=== PATIENT | female | born 1990 | race Two or more races ===

== ENCOUNTER 2023-12-12 15:53 | Inpatient (IN) | payer OTHER ==
[2023-12-12] MEDS ORDERED: CEFTRIAXONE 2 GM/100 ML BAG IVPB ONE (17:59)
[2023-12-12] MEDS: cefTRIAXone 2 GM/100 ML BAG (PRE-DOCKED) IVPB ONE (18:00)
[2023-12-12 18:01] LABS: BASO % 0.1 % (0-2.0); HEMATOCRIT 36.7 % (32.4-45.2); HEMOGLOBIN 12.2 GM/dL (10.7-15.3); LYMPH % 9.2 % (8-40); MCH 29.3 pg (25.7-33.7); MCHC 33.3 g/dl (32.0-36.0); MEAN CELL VOLUME 87.9 fl (80-96); MEAN PLT VOLUME 7.3 fl (7.5-11.1); MONO % 3.3 % (3.8-10.2); NEUT % 87.4 % (42.8-82.8); PLATELET COUNT 370 10^3/uL (134-434); RBC 4.18 M/mm3 (3.60-5.2); RDW 14.5 % (11.6-15.6); WHITE BLOOD COUNT 18.1 K/mm3 (4.0-10.0)
[2023-12-12 18:20] LABS: POTASSIUM 3.8 mmol/L (3.5-5.1)
[2023-12-12 18:22] LABS: ALBUMIN 4.1 g/dl (3.4-5.0); BLOOD UREA NITROGEN 10.8 mg/dL (7-18); CALCIUM 9.2 mg/dL (8.5-10.1)
[2023-12-12 18:26] LABS: CREATININE 0.7 mg/dL (0.55-1.3)
[2023-12-12 18:27] LABS: BILIRUBIN,TOTAL 0.4 mg/dL (0.2-1)
[2023-12-12 18:28] LABS: TOT PROT 8.1 g/dl (6.4-8.2)
[2023-12-12 18:52] LABS: ACTIVATED PTT 29.6 SECONDS (25.2-36.5)
[2023-12-12 18:54] LABS: INR 1.01 (0.83-1.09); PROTHROMBIN TIME (PATIENT) 11.4 SEC (9.7-13.0)
[2023-12-12] MEDS: DAPTOMYCIN 800 MG in SODIUM CHLORIDE 50 ML IVPB ONE (20:55)
[2023-12-12] MEDS ORDERED: ACETAMINOPHEN 325 MG TABLET (FP) ONE (23:27)
[2023-12-12] MEDS: ACETAMINOPHEN 325 MG TABLET (FP) PO PRN (23:30)
[2023-12-13] MEDS ORDERED: MORPHINE SULFATE 2 MG/ML SYRINGE ONE ×2 (01:48→04:26)
[2023-12-13] MEDS: morphine CARPU-JECT 2 MG/1 ML DISP.SYRIN IVPUSH ONE (01:58)
[2023-12-13] MEDS: IBUPROFEN 400 MG TABLET (FP) PO ONE (03:40)
[2023-12-13] MEDS: morphine CARPU-JECT 4 MG/1 ML DISP.SYRIN IVPUSH ONE (04:33)
[2023-12-13 06:26] LABS: BASO % 0.3 % (0-2.0); EOS % 0.5 % (0-4.5); HEMATOCRIT 37.2 % (32.4-45.2); HEMOGLOBIN 12.5 GM/dL (10.7-15.3); LYMPH % 25.3 % (8-40); MCH 29.5 pg (25.7-33.7); MCHC 33.7 g/dl (32.0-36.0); MEAN CELL VOLUME 87.6 fl (80-96); MEAN PLT VOLUME 7.5 fl (7.5-11.1); MONO % 7.2 % (3.8-10.2); NEUT % 66.7 % (42.8-82.8); PLATELET COUNT 366 10^3/uL (134-434); RBC 4.24 M/mm3 (3.60-5.2); RDW 14.1 % (11.6-15.6); WHITE BLOOD COUNT 15.7 K/mm3 (4.0-10.0)
[2023-12-13 06:44] LABS: POTASSIUM 4.1 mmol/L (3.5-5.1)
[2023-12-13 06:48] LABS: ALBUMIN 3.8 g/dl (3.4-5.0); BLOOD UREA NITROGEN 11.3 mg/dL (7-18); MAGNESIUM 2.2 mg/dL (1.8-2.4)
[2023-12-13 06:51] LABS: CREATININE 0.6 mg/dL (0.55-1.3); PHOSPHOROUS 3.2 mg/dL (2.5-4.9)
[2023-12-13 06:53] LABS: BILIRUBIN,TOTAL 0.4 mg/dL (0.2-1); TOT PROT 7.2 g/dl (6.4-8.2)
[2023-12-13] MEDS ORDERED: CEFTRIAXONE 1 GM/50 ML BAG ONE (09:45)
[2023-12-13] MEDS: CEFTRIAXONE 1 GM in DEXTROSE 5%-WATER - 50 ML IVPB SCH (09:49)
[2023-12-13] MEDS ORDERED: DAPTOMYCIN 400 MG in SODIUM CHLORIDE 50 ML IVPB SCH (10:00)
[2023-12-13] MEDS ORDERED: BUPIVACAINE HCL/PF 0.5% (5MG/ML) 10 ML VIAL ONE (10:40)
[2023-12-13] MEDS ORDERED: BUPIVACAINE HCL/PF 0.25% (2.5MG/ML) 10 ML VIAL ONE (10:40)
[2023-12-13] MEDS ORDERED: BACITRACIN ZINC 15 GM TUBE TOPICAL OINTMENT ONE (10:40)
[2023-12-13] MEDS ORDERED: LIDOCAINE 1%/EPI 1:100000 (20 ML MULTI DOSE VIAL) ONE (10:41)
[2023-12-13] MEDS ORDERED: PROPOFOL 40 ML ONE ×2 (12:44→13:35)
[2023-12-13] MEDS ORDERED: MIDAZOLAM HCL 2 MG/2 ML SINGLE DOSE VIAL ONE ×2 (12:44→13:20)
[2023-12-13] MEDS ORDERED: LIDOCAINE HCL/PF 2% SDV 5ML VIAL ONE (12:46)
[2023-12-13] MEDS ORDERED: SUCCINYLCHOLINE CHLORIDE 200 MG/10 ML SYRINGE ONE (12:48)
[2023-12-13] MEDS: LIDOCAINE 1%/EPI 1:100000 (50 ML MULTI DOSE VIAL) INF ONE (13:40)
[2023-12-13] MEDS: BUPIVACAINE HCL/PF 0.25% (2.5MG/ML) 10 ML VIAL IJ ONE (13:40)
[2023-12-13] MEDS ORDERED: EPINEPHrine/PF 1 MG/1 ML (1:1,000) AMPULE ONE (13:54)
[2023-12-13] MEDS ORDERED: ONDANSETRON 4 MG/2 ML VIAL ONE (14:14)
[2023-12-13] MEDS ORDERED: DEXAMETHASONE SOD PHOSPHATE 4 MG/1 ML VIAL ONE (14:14)
[2023-12-13] MEDS ORDERED: SUGAMMADEX SODIUM 200 MG/2 ML VIAL ONE (15:00)
[2023-12-13] MEDS: MUPIROCIN 2% TOPICAL OINTMENT 22 GM TUBE TP ONE ×2 (15:09→18:29)
[2023-12-13] MEDS: LACTATED RINGERS SOLUTION 1,000 ML IV SCH ×2 (15:38→18:29)
[2023-12-13] MEDS: ONDANSETRON 4 MG/2 ML VIAL IVPUSH PRN (15:59)
[2023-12-13] MEDS ORDERED: PROMETHAZINE HCL 25 MG/1 ML VIAL ONE (16:10)
[2023-12-13] MEDS: PROMETHAZINE HCL 25 MG/1 ML VIAL IVPB ONE (16:20)
[2023-12-13] MEDS ORDERED: ONDANSETRON 4 MG/2 ML VIAL IVPUSH PRN (16:43)
[2023-12-13 18:16] VITALS: BMI 34.6
[2023-12-13] MEDS ORDERED: DAPTOMYCIN 800 MG in SODIUM CHLORIDE 50 ML IVPB SCH (21:00)
[2023-12-13] MEDS: ACETAMINOPHEN 325 MG TABLET (FP) PO PRN (21:01)
[2023-12-13] MEDS: DAPTOMYCIN 800 MG in SODIUM CHLORIDE 50 ML IVPB SCH (21:53)
[2023-12-13] MEDS: ACETAMINOPHEN 325 MG TABLET (FP) PO ONE (22:57)
[2023-12-14 08:31] LABS: POTASSIUM 3.8 mmol/L (3.5-5.1)
[2023-12-14 08:32] LABS: BASO % 0.1 % (0-2.0); EOS % 0.1 % (0-4.5); HEMATOCRIT 34.9 % (32.4-45.2); HEMOGLOBIN 11.9 GM/dL (10.7-15.3); LYMPH % 26.6 % (8-40); MCH 29.7 pg (25.7-33.7); MEAN CELL VOLUME 87.4 fl (80-96); MEAN PLT VOLUME 7.3 fl (7.5-11.1); MONO % 6.9 % (3.8-10.2); NEUT % 66.3 % (42.8-82.8); PLATELET COUNT 320 10^3/uL (134-434); RDW 14.3 % (11.6-15.6); WHITE BLOOD COUNT 10.7 K/mm3 (4.0-10.0)
[2023-12-14 08:35] LABS: CALCIUM 8.2 mg/dL (8.5-10.1)
[2023-12-14 08:36] LABS: ALBUMIN 3.1 g/dl (3.4-5.0); BLOOD UREA NITROGEN 8.8 mg/dL (7-18); MAGNESIUM 2.2 mg/dL (1.8-2.4)
[2023-12-14 08:39] LABS: CREATININE 0.4 mg/dL (0.55-1.3)
[2023-12-14 08:41] LABS: BILIRUBIN,TOTAL 0.3 mg/dL (0.2-1); TOT PROT 6.5 g/dl (6.4-8.2)
[2023-12-14] MEDS: CEFTRIAXONE 1 GM in DEXTROSE 5%-WATER - 50 ML IVPB SCH (11:17)
[2023-12-14] MEDS: MUPIROCIN 2% TOPICAL OINTMENT 22 GM TUBE TP ONE (13:54)
[2023-12-14] MEDS ORDERED: ACETAMINOPHEN 325 MG TABLET (FP) PO PRN (20:00)
[2023-12-14] MEDS ORDERED: oxyCODONE HCL 5 MG TABLET PO PRN (20:06)
[2023-12-15 09:03] LABS: BASO % 0.4 % (0-2.0); EOS % 1.3 % (0-4.5); HEMATOCRIT 34.5 % (32.4-45.2); HEMOGLOBIN 11.9 GM/dL (10.7-15.3); MCH 29.9 pg (25.7-33.7); MCHC 34.5 g/dl (32.0-36.0); MEAN CELL VOLUME 86.8 fl (80-96); MEAN PLT VOLUME 7.3 fl (7.5-11.1); MONO % 5.6 % (3.8-10.2); NEUT % 40.7 % (42.8-82.8); PLATELET COUNT 283 10^3/uL (134-434); RBC 3.98 M/mm3 (3.60-5.2); RDW 13.9 % (11.6-15.6); WHITE BLOOD COUNT 7.7 K/mm3 (4.0-10.0)
[2023-12-15 09:23] LABS: POTASSIUM 3.7 mmol/L (3.5-5.1)
[2023-12-15 09:30] LABS: ALBUMIN 3.1 g/dl (3.4-5.0); BLOOD UREA NITROGEN 9.6 mg/dL (7-18); CALCIUM 8.1 mg/dL (8.5-10.1); MAGNESIUM 1.9 mg/dL (1.8-2.4)
[2023-12-15 09:33] LABS: CREATININE 0.5 mg/dL (0.55-1.3)
[2023-12-15 09:36] LABS: BILIRUBIN,TOTAL 0.4 mg/dL (0.2-1); TOT PROT 6.3 g/dl (6.4-8.2)
[2023-12-16 09:29] LABS: BASO % 0.5 % (0-2.0); EOS % 1.7 % (0-4.5); HEMATOCRIT 38.3 % (32.4-45.2); HEMOGLOBIN 12.9 GM/dL (10.7-15.3); LYMPH % 44.7 % (8-40); MCH 29.4 pg (25.7-33.7); MCHC 33.8 g/dl (32.0-36.0); MEAN CELL VOLUME 86.9 fl (80-96); MEAN PLT VOLUME 7.3 fl (7.5-11.1); MONO % 5.2 % (3.8-10.2); NEUT % 47.9 % (42.8-82.8); PLATELET COUNT 312 10^3/uL (134-434); RDW 14.1 % (11.6-15.6); WHITE BLOOD COUNT 7.7 K/mm3 (4.0-10.0)
[2023-12-16 09:46] LABS: POTASSIUM 4.1 mmol/L (3.5-5.1)
[2023-12-16 09:51] LABS: ALBUMIN 3.5 g/dl (3.4-5.0); CALCIUM 9.2 mg/dL (8.5-10.1)
[2023-12-16 09:52] LABS: BLOOD UREA NITROGEN 8.5 mg/dL (7-18); MAGNESIUM 1.9 mg/dL (1.8-2.4)
[2023-12-16 09:54] LABS: CREATININE 0.6 mg/dL (0.55-1.3)
[2023-12-16 09:55] LABS: BILIRUBIN,TOTAL 0.3 mg/dL (0.2-1)
[2023-12-16 09:56] LABS: TOT PROT 6.7 g/dl (6.4-8.2)
[2023-12-16 11:08] VITALS: BP 128/77; PULSE 86; RESP 17; TEMP 98.4
== END 2023-12-16 11:50 | disposition home or self-care (01) | DRG 98 ==
LOC: JER 15:53 → JERBED 19:46 → J8W 12-13 17:47
PROVIDERS: ADMIT Internal Medicine
PROC: 0C910ZZ Drainage of Lower Lip, Open Approach (ICD-10-PCS; 2023-12-13)
PROC: 0CB10ZZ Excision of Lower Lip, Open Approach (ICD-10-PCS; principal; 2023-12-13 12:30)
DX: K12.2 Cellulitis and abscess of mouth (principal); E66.9 Obesity, unspecified; Z68.34 Body mass index [BMI] 34.0-34.9, adult; B95.62 Methicillin resistant Staphylococcus aureus infection as the cause of diseases classified elsewhere
CPT/HCPCS: 36415; 70491-TC; 80053; 83735; 84100; 84703; 85025; 85610; 85730; 86140; 86850; 86900; 86901; 87040; 87070; 87186; 87205; 88305-TC; 93005; 93010; 94760; 99285-25; J0878; Q9967